=== PATIENT | male | born 1995 | race Caucasian/White ===

== ENCOUNTER 2022-03-29 12:12 | Emergency (ER) | payer OTHER, MEDICAID, SELFPAY ==
[2022-03-29 12:22] VITALS: BP 139/90; PULSE 94; RESP 20; TEMP 36.9; O2SAT 100
--- NOTE | 2022-03-29 12:37 | ED.EYEPROB ---
HPI - Eye Problem General Chief complaint: Eye Problems Stated complaint: Eye Problem Time Seen by Provider: 03/29/22 12:37 Source: patient Mode of arrival: ambulatory Limitations: no limitations History of Present Illness HPI Narrative: 26-year-old male presented for complaints of bilateral eye redness and drainage since yesterday. Mother states that he woke with right eye crusted shut yesterday and it has spread to the left eye today. Denies injury, foreign body, vision changes or headaches. They have used warm compresses today. He has been taking benadryl. hx bipolar schizophrenic mother is guardian chief complaint: eye pain Related Data Home Medications Medication Instructions Recorded Confirmed carbamazepine 200 mg tablet 200 mg PO DAILY 03/29/22 03/29/22 (Tegretol) carbamazepine 200 mg tablet 400 mg PO HS 03/29/22 03/29/22 (Tegretol) quetiapine 400 mg tablet (Seroquel) 400 mg PO HS 03/29/22 03/29/22 quetiapine 50 mg tablet (Seroquel) 50 mg PO BID 03/29/22 03/29/22 Allergies Allergy/AdvReac Type Severity Reaction Status Date / Time clindamycin AdvReac Severe Other Verified 03/29/22 12:26 Review of Systems Review of Systems: CONSTITUTIONAL: Denies body aches, fever, chills EYES:Endorses redness and itching to eyes ENT: Denies rhinorrhea, congestion, sore throat, or otalgia. CARDIOVASCULAR: Denies chest pain, palpitations RESPIRATORY: Denies cough or dyspnea. SKIN: Denies rash, itching, or wounds. MUSCULOSKELETAL: Denies back pain, joint pain, or myalgia. NEUROLOGIC: Denies headache, numbness, tingling, or weakness. All systems reviewed & are unremarkable except as noted in HPI and below PMFSH Comments At time of signature, I have reviewed and agree with nursing past medical, surgical, social and family history unless otherwise noted. Please see nursing chart for further information. There is no relevant family history pertinent to the presenting complaint Exam Narrative: GENERAL: Well-appearing HEAD: Normocephalic, atraumatic. EYES: Bilateral conjunctival injection and purulent discharge; no eye lid swelling. PERRLA EOMI. ENT: Mucous membranes pink and moist. No rhinorrhea. TMs with cerumen bilaterally. CHEST: Clear to auscultation. HEART: Regular rate and rhythm. SKIN: Warm, dry, no rash. Normal skin turgor. NEURO: No focal deficits. Alert and oriented x3 PSYCH: Flat affect. Course Course Emergency Course: Patient is aware of diagnosis, understands and agrees to treatment plan. Anticipatory guidance given. Patient agrees to follow-up as directed and is aware of reasons to seek care at the emergency department. Portions of this record may have been created with voice recognition software Level of Care: Express Care Visit Vital Signs Vital signs: Vital Signs Temperature 98.4 F 03/29/22 12:22 Pulse Rate 94 03/29/22 12:22 Respiratory Rate 20 03/29/22 12:22 Blood Pressure 139/90 03/29/22 12:22 Pulse Oximetry 100 03/29/22 12:22 Oxygen Delivery Room Air 03/29/22 12:22 Temperature 98.4 F 03/29/22 12:22 Pulse Rate 94 03/29/22 12:22 Respiratory Rate 20 03/29/22 12:22 Blood Pressure 139/90 03/29/22 12:22 Pulse Oximetry 100 03/29/22 12:22 Oxygen Delivery Room Air 03/29/22 12:22 MDM - Eye Problem MDM Narrative Medical decision making narrative: Advised supportive measures of bacterial conjunctivitis and signs/symptoms to go to the ER. Pt is appropriate for outpt treatment and f/u. Differential Diagnosis Differential diagnosis: Likely corneal abrasion, conjunctivitis, acute iritis and other Discharge Plan Discharge Clinical Impression: Bacterial conjunctivitis Patient Disposition: Home, Self-Care Condition: Stable Instructions: Antibiotic Form, Conjunctivitis (ED) Additional Instructions: Avoid touching or rubbing your eye. Use over the counter lubricating eye drops as needed for irritation Use a warm or cool
== END 2022-03-29 12:48 | disposition home or self-care (01) ==
PROVIDERS: Emergency Provider Nurse Practitioner Family; PCP Internal Medicine
DX: H10.89 Other conjunctivitis (principal)
CPT/HCPCS: 99203; G0463

== ENCOUNTER 2022-09-24 12:37 | Emergency (ER) | payer OTHER, SELFPAY ==
--- NOTE | 2022-09-24 12:42 | ED.URI ---
HPI - URI/Sore Throat General Chief Complaint: Upper Respiratory Infection Stated Complaint: Sunis Congestion Time Seen by Provider: 09/24/22 12:42 Source: patient and RN notes reviewed History of Present Illness HPI Narrative: Patient is a 26-year-old male who presents to the Urgent Care with his father, history of autism, with complaints of severe sinus congestion, postnasal drainage and cough. States that it started 3 days ago and may have taken 1 dose of Mucinex and Sudafed. Denies any fevers. Denies any nausea or vomiting or shortness of breath. Patient has no complaints of pain. No other acute complaints. No acute distress noted. Father aware of the plan of care. Some parts of this dictation were generated by voice recognition software and may contain typographical and/or grammatical inaccuracies. Related Data Home Medications Medication Instructions Recorded Confirmed carbamazepine 200 mg tablet 200 mg PO DAILY 03/29/22 09/24/22 (Tegretol) quetiapine 400 mg tablet (Seroquel) 400 mg PO HS 03/29/22 09/24/22 quetiapine 50 mg tablet (Seroquel) 50 mg PO BID 03/29/22 09/24/22 Allergies Allergy/AdvReac Type Severity Reaction Status Date / Time clindamycin AdvReac Severe Other Verified 09/24/22 12:59 Review of Systems Review of Systems: CONSTITUTIONAL: Denies fever, chills, or sweats. EYES: Denies visual changes, redness, or discharge. ENT: Reports postnasal drainage, sinus congestion CARDIOVASCULAR: Denies chest pain, palpitations, or edema. RESPIRATORY: reports of cough without dyspnea GASTROINTESTINAL: Denies abdominal pain, nausea, vomiting, or diarrhea. GENITOURINARY: Denies dysuria or hematuria. SKIN: Denies rash or itching. MUSCULOSKELETAL: Denies back pain, joint pain, or myalgia. NEUROLOGIC: Denies headache, numbness, or weakness. All other systems reviewed are negative, except as documented in HPI. PMFSH Comments At the time of my signature, I reviewed and agree with the nursing past medical, surgical, social, and family history. There is no relevant family history pertinent to the patient complaint. Exam Narrative: GENERAL: This is a well-nourished, well-developed patient, in no apparent distress. HEAD: normocephalic, atraumatic. EYES: PERRL. Sclera clear/white. Vision is grossly intact. EARS: External ears normal, auditory canals clear and without drainage, mild bilateral station tube dysfunction.TMs normal without perforation. Hearing grossly intact. NOSE: External nose normal with no obvious nasal discharge . Mild bilateral erythema nares with copious clear to yellow rhinorrhea THROAT: Mucous membranes moist, mild erythema to posterior pharynx with moderate postnasal drainage. NECK: Neck supple, non-tender without lymphadenopathy CARDIOVASCULAR: Regular rate and rhythm without murmurs, gallops, or rubs. RESPIRATORY: Clear to auscultation. Breath sounds equal bilaterally. No wheezes, rales, or rhonchi. SKIN: warm, intact with no suspicious lesions or rash, good texture and turgor. NEURO: awake, alert, and oriented to person, place and time. There were no obvious focal neurologic abnormalities. EXTREMITIES: No clubbing, cyanosis, or edema. Course Course Level of Care: Express Care Visit Vital Signs Vital signs: Vital Signs Temperature 98.8 F 09/24/22 12:53 Pulse Rate 113 H 09/24/22 12:53 Respiratory Rate 20 09/24/22 12:53 Blood Pressure 134/81 09/24/22 12:53 Pulse Oximetry 96 09/24/22 12:53 Temperature 98.8 F 09/24/22 12:53 Pulse Rate 113 H 09/24/22 12:53 Respiratory Rate 20 09/24/22 12:53 Blood Pressure 134/81 09/24/22 12:53 Pulse Oximetry 96 09/24/22 12:53 Reviewed MDM - URI/Sore Throat MDM Narrative Medical decision making narrative: advised Father continue the Mucinex. Complete steroid regimen as prescribed. Use Flonase nasal spray and Benadryl prior to bedtime. Use a humidifier at night. Use Tylenol/ ibuprofen as needed for com
[2022-09-24 12:53] VITALS: BP 134/81; PULSE 113; RESP 20; TEMP 37.1; O2SAT 96
== END 2022-09-24 13:10 | disposition home or self-care (01) ==
PROVIDERS: Emergency Provider Nurse Practitioner Family; PCP Internal Medicine
DX: J32.9 Chronic sinusitis, unspecified (principal); F84.0 Autistic disorder; F31.9 Bipolar disorder, unspecified; F20.9 Schizophrenia, unspecified
CPT/HCPCS: 99213; G0463